=== PATIENT | male | born 1945 | race Caucasian/White ===

== ENCOUNTER → 2018-04-04 08:51 | Outpatient (CLI) | payer MEDICARE, OTHER, SELFPAY ==
[2018-04-04 11:23] LABS: Add Manual Diff / Slide Review NO; Basophils Percent Auto 0.3 % (0-2); Eosinophils Percent Auto 3.9 % (2-4); Hematocrit 41.8 % (41-53); Hemoglobin 14.7 g/dL (13.5-17.5); Lymphocytes Percent Auto 31.9 % (25-40); Mean Corpuscular HGB Conc 35.1 % (30-36); Mean Corpuscular Hemoglobin 34.8 PG (26-34); Mean Corpuscular Volume 99.1 fL (80-100); Monocytes Percent Auto 11.9 % (3-14); Neutrophils Absolute Auto 1900 /uL (3000-5900); Platelet Count 227 X10^3/uL (150-400); Red Blood Cell Count 4.22 X10^6/uL (4.5-5.9); Red Cell Distribution Width 13.1 % (11.6-14.8); White Blood Cell Count 3.6 X10^3/uL (4.5-11.0)
[2018-04-04 11:24] LABS: Alanine Aminotransferase 41 IU/L (21-72); Albumin 4.1 g/dL (3.5-5.0); Albumin Globulin Ratio 1.4 (1.0-2.8); Alkaline Phosphatase 51 U/L (38-126); Aspartate Aminotransferase 27 IU/L (17-59); BUN Creatinine Ratio 17.1 (6-22); Bilirubin Total 0.9 mg/dL (0.2-1.3); Blood Urea Nitrogen 12 mg/dL (9-20); Calcium 9.1 mg/dL (8.4-10.2); Carbon Dioxide 28 mmol/L (22-32); Chloride 101 mmol/L (98-107); Cholesterol 212 mg/dL (140-199); Estimated Glomerular Filt Rate > 60.0 mL/min (>60); Glucose 94 mg/dL (80-110); HDL Cholesterol 50 mg/dL (40-60); HEMOLYSIS < 15 (0-50); LDL Cholesterol Calculated 140 mg/dL (<100); Potassium 4.2 mmol/L (3.4-5.1); Sodium 141 mmol/L (137-145); Total Protein 7.1 g/dL (6.3-8.2); Triglycerides 108 mg/dL (35-150)
[2018-04-04 11:51] LABS: TSH w/ Reflex to FT4 0.96 uIU/mL (0.47-4.68)
== END ==
PROVIDERS: PCP Internal Medicine; Visit Provider Internal Medicine
DX: I10 Essential (primary) hypertension (principal); E78.00 Pure hypercholesterolemia, unspecified; E03.9 Hypothyroidism, unspecified
CPT/HCPCS: 36415; 80053; 80061; 84443; 85025

== ENCOUNTER → 2020-04-22 18:23 | Outpatient (ROUT) | payer MEDICARE, OTHER, SELFPAY ==
[2020-04-22 18:52] LABS: Add Manual Diff / Slide Review NO; Basophils Absolute Auto 0 /uL (0-100); Basophils Percent Auto 0.3 % (0-2); Eosinophils Absolute Auto 200 /uL (0-450); Eosinophils Percent Auto 5.4 % (2-4); Hematocrit 41.7 % (41-53); Hemoglobin 14.6 g/dL (13.5-17.5); Lymphocytes Absolute Auto 1200 /uL (1100-4500); Lymphocytes Percent Auto 38.5 % (25-40); Mean Corpuscular Hemoglobin 34.9 PG (26-34); Mean Corpuscular Volume 99.8 fL (80-100); Monocytes Absolute Auto 300 /uL (0-900); Monocytes Percent Auto 9.9 % (3-14); Neutrophils Absolute Auto 1500 /uL (1500-7000); Neutrophils Percent Auto 45.9 % (50-75); Platelet Count 209 X10^3/uL (150-400); Red Blood Cell Count 4.18 X10^6/uL (4.5-5.9); Red Cell Distribution Width 13.1 % (11.6-14.8); White Blood Cell Count 3.2 X10^3/uL (4.5-11.0)
[2020-04-22 18:57] LABS: Alanine Aminotransferase 39 IU/L (<50); Albumin 4.1 g/dL (3.5-5.0); Albumin Globulin Ratio 1.5 (1.0-2.8); Alkaline Phosphatase 45 U/L (38-126); Aspartate Aminotransferase 36 IU/L (17-59); Bilirubin Total 0.7 mg/dL (0.2-1.3); Blood Urea Nitrogen 17 mg/dL (9-20); Calcium 9.4 mg/dL (8.4-10.2); Carbon Dioxide 25 mmol/L (22-32); Chloride 104 mmol/L (98-107); Cholesterol 194 mg/dL (140-199); Estimated Glomerular Filt Rate > 60.0 mL/min (>60); Globulin 2.7 g/dL (1.7-4.1); Glucose 170 mg/dL (80-110); HDL Cholesterol 46 mg/dL (40-60); HEMOLYSIS < 15 (0-50); LDL Cholesterol Calculated 125 mg/dL (<100); Potassium 4.5 mmol/L (3.4-5.1); Sodium 136 mmol/L (137-145); Total Protein 6.8 g/dL (6.3-8.2); Triglycerides 114 mg/dL (35-150)
[2020-04-25 15:12] LABS: Hemoglobin A1C% w Est Avg Glu 5.9 % (4.0-6.0)
== END ==
PROVIDERS: Family Provider Internal Medicine; PCP Internal Medicine; Visit Provider Physician Assistant
DX: F32.9 Major depressive disorder, single episode, unspecified (principal); I10 Essential (primary) hypertension; E03.9 Hypothyroidism, unspecified
CPT/HCPCS: 80053; 80061; 83036; 84443; 85025

== ENCOUNTER → 2021-08-25 13:29 | Outpatient (CLI) | payer MEDICARE, OTHER, SELFPAY ==
[2021-08-27 11:12] LABS: COVID19 Sendout Positive (Not Detect)
== END ==
PROVIDERS: Family Provider Internal Medicine; PCP Internal Medicine; Visit Provider Nurse Practitioner
DX: U07.1 COVID-19 (principal); Z20.822 Contact with and (suspected) exposure to COVID-19
CPT/HCPCS: 87635

== ENCOUNTER → 2022-05-04 18:56 | Outpatient (CLI) | payer MEDICARE, OTHER, SELFPAY ==
--- NOTE | 2022-05-04 | DI.MRI.S_ITS ---
PROCEDURE: MR LUMBAR SPINE WO CON INDICATIONS: radiculopathy, lumbar region TECHNIQUE: Noncontrast sagittal T1 spin echo and T2 fast echo, sagittal STIR, and T2 fast spin echo through the lumbar spine. In cases with scoliosis, additional coronal T2 fast spin echo may be performed. COMPARISON: [facility], CR, XR LUMBAR SPINE WITH OBLIQUES PLUS FLEXION EXTENSION, 05/01/2022, 10:38. FINDINGS: Image quality: Excellent. Alignment and Curvature: Trace anterolisthesis L4 on L5. Bone Marrow: Marrow is of normal overall signal. No acute vertebral body compression fractures. Spinal Cord: Conus medullaris terminates at the L1 level. Visualized cord demonstrates normal signal and size. Paraspinous Soft Tissues: No paravertebral masses. T12-L1: No canal stenosis or foraminal stenosis. L1-L2: Minimal disc bulge. No canal stenosis or foraminal stenosis. L2-L3: Moderate disc height loss. Mild disc bulge. Facet and ligament hypertrophy. Mild canal stenosis. Right foraminal annulus tear plus disc bulge. Mild bilateral foraminal narrowing. L3-L4: Disc bulge. Facet and ligament hypertrophy. Mild canal stenosis. Mild bilateral foraminal stenosis. L4-L5: Disc bulge. Superimposed mild left paracentral disc protrusion. Moderate to severe central canal stenosis. Severe left lateral recess stenosis. Small left foraminal disc extrusion with moderate to severe left foraminal narrowing and impingement on the left L4 nerve root in the foramen. L5-S1: Disc bulge. Facet and ligament hypertrophy. A combination of facet hypertrophy and mild broad-based right foraminal disc protrusion results in moderate to severe right foraminal narrowing with right foraminal nerve root impingement. There is moderate left foraminal narrowing. IMPRESSION: 1. Diffuse degenerative change. 2. The most significant findings are at L4-L5. There is moderate to severe canal stenosis, severe left lateral recess stenosis, and a left foraminal disc extrusion contributing to left foraminal L4 nerve root impingement. 3. There is mild canal stenosis at L2-L3 and L3-L4. 4. There is moderate to severe right foraminal narrowing at L5-S1. Dictated by: Paul Dixon M.D. on 05/08/2022 at 8:33 Approved by: Paul Dixon M.D. on 05/08/2022 at 9:59
== END ==
PROVIDERS: Family Provider Internal Medicine; PCP Internal Medicine; Referring Provider Physical Medicine & Rehabilitation Pain Medicine; Visit Provider Physical Medicine & Rehabilitation Pain Medicine
DX: M47.26 Other spondylosis with radiculopathy, lumbar region; M47.27 Other spondylosis with radiculopathy, lumbosacral region; M48.061 Spinal stenosis, lumbar region without neurogenic claudication; M48.07 Spinal stenosis, lumbosacral region
CPT/HCPCS: 72148

== ENCOUNTER 2023-05-16 07:10 | Emergency (ER) | payer MEDICARE, SELFPAY ==
[2023-05-16 07:18] VITALS: BP 190/114; PULSE 95; RESP 20; TEMP 36.6; O2SAT 94; BMI 27.2
[2023-05-16 07:30] VITALS: PULSE 90; O2SAT 95
[2023-05-16 07:37] VITALS: BP 173/123; PULSE 90; O2SAT 94
--- NOTE | 2023-05-16 07:46 | ED_ITS ---
HPI - Neck Pain/Injury General Chief Complaint: Neck Pain/Injury Stated Complaint: neck pain Time Seen by Provider: 05/16/23 07:18 Source: patient Mode of arrival: Ambulatory Limitations: no limitations History of Present Illness HPI Narrative: Patient presents with about 3 days of neck pain. He was on a fishing trip 3-4 days ago. He remembers turning his neck sharply, no pain at the time. He developed neck pain after the trip. He has significant discomfort with rotation to the left or the right. He is no associated headache or visual changes. He is no numbness or weakness in the upper lower extremities. There was no obvious significant trauma to his neck. He is no prior history of neck problems. Related Data Home Medications Medication Instructions Recorded Confirmed citalopram 20 mg tablet (Celexa) 20 mg PO DAILY 03/18/18 08/13/22 levothyroxine 25 mcg capsule 25 mcg PO DAILY 03/18/18 08/13/22 Previous Rx's Medication Instructions Recorded methocarbamol 750 mg tablet 750 mg PO Q6H PRN muscle spasm #60 05/16/23 tabs tramadol 50 mg tablet 50 mg PO Q6H PRN pain #20 tabs 05/16/23 Allergies Allergy/AdvReac Type Severity Reaction Status Date / Time SULFA Allergy Mild Uncoded 08/13/22 15:27 Review of Systems Constitutional Constitutional: Denies chills, Denies fever(s) and Denies weakness Comments: No recent illness Eyes Eyes: Denies blurry vision and Denies change in vision ENT Ears, Nose, Mouth, and Throat: Denies vertigo, Denies dizziness and Reports neck pain Comments: No headache. Musculoskeletal Musculoskeletal: Denies back pain, Denies muscle cramps, Denies muscle weakness, Reports neck pain and Denies numbness Integumentary/Breasts Skin/Breast: Denies rash Neurologic Neurologic: Denies confusion, Denies vertigo, Denies dizziness, Denies numbness and Denies weakness Psychiatric Psychiatric: Denies confusion Patient History Medical History (Updated 05/16/23 @ 08:03 by Carlo Gomes MD) Hypothyroidism Social History Smoking Status: Former smoker Smoking Status: Former smoker alcohol intake frequency: holidays/special occasions only Substance Use Type: does not use Exam Initial Vital Signs Initial Vital Signs: Vital Signs Temperature 97.9 F 05/16/23 07:18 Pulse Rate 95 H 05/16/23 07:18 Respiratory Rate 20 05/16/23 07:18 Blood Pressure 190/114 H 05/16/23 07:18 Pulse Oximetry 94 05/16/23 07:18 Oxygen Delivery Method Room Air 05/16/23 07:18 Const General: cooperative, healthy appearing and other (Appears uncomfortable) Nutritional Appearance: average body habitus [facility] Head: normal to inspection, normocephalic and atraumatic Eyes General: Yes appearance normal, both eyes and all related structures Neck Other: Palpation of the C-spine reveals no abnormalities. No paraspinal tenderness. Significant discomfort in the proximal C-spine with rotation to the left or the right. Lesser discomfort with flexion of the neck. Back/Spine/Pelvis Other: No thoracic spine tenderness. Skin General: no rashes or lesions noted Neuro General: patient alert, patient awake and patient oriented x3 Other: Motor and sensory exam of the upper extremities is intact. Extrem General: normal to inspection and full ROM (In upper extremities.) Psych Appearance: grossly normal Course Orders Ordered: ED Orders 05/16/23 07:50 XR cervical spine 2V or 3V Stat Vital Signs Vital signs: Vital Signs - 8 hr 05/16/23 07:18 05/16/23 07:30 05/16/23 07:37 Temperature 97.9 F Pulse Rate 95 H 90 90 Respiratory Rate 20 Blood Pressure 190/114 H Pulse Oximetry 94 95 94 Oxygen Delivery Method Room Air Room Air 05/16/23 07:37 Temperature Pulse Rate Respiratory Rate Blood Pressure 173/123 H Pulse Oximetry Oxygen Delivery Method MDM - Neck Pain/Injury Imaging Data C-spine x-ray: Radiologist's Impression: ? No cervical spine fracture or dislocation.? 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 Discharge Plan Departure Activity Restrictions/Additional Instructions: Tylenol every 4 hours as needed for pain. Tramadol every 6 hours for added pain control. Robaxin every 6 hours for muscle spasm. I have given you a written order for physical therapy. You will have to contact a local physical therapist on arrange care yourself, my written order should suffice. Consider establishing care with a local primary care provider. Prescriptions: New tramadol 50 mg tablet 50 mg PO Q6H PRN (Reason: pain) Qty: 20 0RF methocarbamol 750 mg tablet 750 mg PO Q6H PRN (Reason: muscle spasm) Qty: 60 0RF No Action levothyroxine 25 mcg capsule 25 mcg PO DAILY citalopram [Celexa] 20 mg tablet 20 mg PO DAILY Referrals: Robb Connolly MD [Primary Care Provider] -
--- NOTE | 2023-05-16 07:50 | DI.RAD.S_ITS ---
PROCEDURE: XR CERVICAL SPINE 2V OR 3V INDICATIONS: Neck pain. No trauma. TECHNIQUE: 4 view(s) of the cervical spine were acquired. COMPARISON: None. FINDINGS: Bones: No fractures or dislocations to the T1 level. Straightening of normal cervical lordosis is seen. Loss of disc height and degenerative endplate changes are seen at C4-5 through C6-7 levels. The lateral masses of C1 appear intact on the odontoid view. No suspicious bony lesions. Soft tissues: No prevertebral soft tissue swelling. IMPRESSION: No cervical spine fracture or dislocation. 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 Dictated by: Willie De La Vega M.D. on 05/16/2023 at 8:37 Approved by: Willie De La Vega M.D. on 05/16/2023 at 8:37
--- NOTE | 2023-05-16 18:19 | ED.NECK ---
HPI - Neck Pain/Injury General Chief Complaint: Neck Pain/Injury Stated Complaint: neck pain Time Seen by Provider: 05/16/23 07:18 Mode of arrival: Ambulatory Limitations: no limitations Related Data Home Medications Medication Instructions Recorded Confirmed citalopram 20 mg tablet (Celexa) 20 mg PO DAILY 03/18/18 08/13/22 levothyroxine 25 mcg capsule 25 mcg PO DAILY 03/18/18 08/13/22 Previous Rx's Medication Instructions Recorded methocarbamol 750 mg tablet 750 mg PO Q6H PRN muscle spasm #60 05/16/23 tabs tramadol 50 mg tablet 50 mg PO Q6H PRN pain #20 tabs 05/16/23 Allergies Allergy/AdvReac Type Severity Reaction Status Date / Time SULFA Allergy Mild Uncoded 08/13/22 15:27 Review of Systems Constitutional Constitutional: Denies weakness ENT Ears, Nose, Mouth, and Throat: Denies vertigo and Denies dizziness Musculoskeletal Musculoskeletal: Denies numbness Neurologic Neurologic: Denies confusion, Denies vertigo, Denies dizziness, Denies numbness and Denies weakness Psychiatric Psychiatric: Denies confusion Patient History Medical History (Updated 05/16/23 @ 18:20 by Carlo Gomes MD) Hypothyroidism Social History Smoking Status: Former smoker Smoking Status: Former smoker alcohol intake frequency: holidays/special occasions only Substance Use Type: does not use Exam Initial Vital Signs Initial Vital Signs: Vital Signs Temperature 97.9 F 05/16/23 07:18 Pulse Rate 95 H 05/16/23 07:18 Respiratory Rate 20 05/16/23 07:18 Blood Pressure 190/114 H 05/16/23 07:18 Pulse Oximetry 94 05/16/23 07:18 Oxygen Delivery Method Room Air 05/16/23 07:18 Discharge Plan Departure Patient Disposition: Home Clinical Impression: Cervical osteoarthritis Activity Restrictions/Additional Instructions: Tylenol every 4 hours as needed for pain. Tramadol every 6 hours for added pain control. Robaxin every 6 hours for muscle spasm. I have given you a written order for physical therapy. You will have to contact a local physical therapist on arrange care yourself, my written order should suffice. Consider establishing care with a local primary care provider. Prescriptions: New tramadol 50 mg tablet 50 mg PO Q6H PRN (Reason: pain) Qty: 20 0RF methocarbamol 750 mg tablet 750 mg PO Q6H PRN (Reason: muscle spasm) Qty: 60 0RF No Action levothyroxine 25 mcg capsule 25 mcg PO DAILY citalopram [Celexa] 20 mg tablet 20 mg PO DAILY Referrals: Robb Connolly MD [Primary Care Provider] - Stand Alone Forms: Patient Portal/API
== END 2023-05-16 09:30 | disposition home or self-care (01) ==
PROVIDERS: Emergency Provider Emergency Medicine; Family Provider Internal Medicine; PCP Internal Medicine
DX: M47.812 Spondylosis without myelopathy or radiculopathy, cervical region (principal)
CPT/HCPCS: 72040; 99281; 99283

== ENCOUNTER 2024-04-11 13:59 | Emergency (ER) | payer MEDICARE, SELFPAY ==
--- NOTE | 2024-04-11 14:30 | DI.RAD.S_ITS ---
PROCEDURE: XR CHEST 1V INDICATIONS: SOB TECHNIQUE: One view of the chest was acquired. COMPARISON: None. FINDINGS: Surgical changes and devices: None. Lungs and pleura: Lungs are clear. No pleural effusions or pneumothorax. Mediastinum: Mediastinal contours appear normal. Heart size is normal. Bones and chest wall: No suspicious bony lesions. Overlying soft tissues appear unremarkable. IMPRESSION: No acute cardiopulmonary abnormality is seen. Dictated by: Star Rebollar M.D. on 04/11/2024 at 15:32 Approved by: Star Rebollar M.D. on 04/11/2024 at 15:32
--- NOTE | 2024-04-11 17:04 | ED.CHESTPAIN ---
HPI - Chest Pain <Amanda Valdez DO - Last Filed: 04/11/24 18:50> General Chief Complaint: Chest Pain Stated Complaint: SOB Time Seen by Provider: 04/11/24 16:27 Source: patient, RN notes reviewed and old records reviewed Mode of arrival: Family Vehicle Limitations: no limitations History of Present Illness HPI narrative: 78-year-old male on citalopram and fish oil, flaxseed oil red yeast rice who presents with complaint of chest tightness that is substernal without radiation, patient states been going on and off for the past week with exertion when he goes for walks. He describes it as acid reflux. States it has only been associated with exertion. Today after his walk was persistent and not resolving he came to be evaluated. States it has resolved at this time. He denies any shortness of breath except with exertion. Denies any chills or diaphoresis. No syncope. No new swelling in extremities. No nausea or vomiting. Patient states no GI or urinary symptoms otherwise. He states his only prescription medication is citalopram. He does not take anything for hypertension, states he does not tolerate statins but is on fish oil, flaxseed and red yeast rice. He does not take any aspirin or other anticoagulants daily. Denies any prior surgeries. No prior heart cardiac catheterization or stress test. No tobacco, has 1 scotch daily sometimes two. Denies any recreational drugs. His primary care was in [place]. Related Data Home Medications Medication Instructions Recorded Confirmed citalopram 20 mg tablet (Celexa) 20 mg PO DAILY 03/18/18 08/13/22 levothyroxine 25 mcg capsule 25 mcg PO DAILY 03/18/18 08/13/22 Previous Rx's Medication Instructions Recorded methocarbamol 750 mg tablet 750 mg PO Q6H PRN muscle spasm #60 05/16/23 tabs tramadol 50 mg tablet 50 mg PO Q6H PRN pain #20 tabs 05/16/23 Allergies Allergy/AdvReac Type Severity Reaction Status Date / Time SULFA Allergy Mild Uncoded 08/13/22 15:27 Review of Systems <DO Epi Monroy Last Filed: 04/11/24 18:50> Review of Systems ROS Unobtainable: All systems reviewed & are unremarkable except as noted in HPI and below Patient History <Amanda Valdez DO - Last Filed: 04/11/24 18:50> Medical History Hypothyroidism Social History Smoking Status: Former smoker Smoking Status: Former smoker alcohol intake frequency: holidays/special occasions only Substance Use Type: does not use Exam <Amanda Valdez DO - Last Filed: 04/11/24 18:50> Narrative Exam Narrative: GENERAL: Alert and oriented x three, mild distress. HEENT: Head normocephalic, atraumatic, EOMI, pupils reactive, face symmetric, moist mucous membranes NECK: Supple, full range of motion CARDIOVASCULAR: Regular rate and rhythm without murmurs, rubs or gallops. 2+ pulses bilateral lower extremities. RESPIRATORY: Breath sounds equal bilaterally, no wheezes rales or rhonchi. ABDOMEN: Soft, nontender. Normoactive bowel sounds all 4 quadrants. No guarding or rebound, rigidity, no mass : No CVA tenderness EXTREMITIES: Normal range of motion, no clubbing or edema. Neurovascularly intact NEUROLOGICAL: Cranial nerves II through XII grossly intact. Moving all extremities SKIN: Warm, dry, no petechiae, no rashes or lesions. Course <Amanda Valdez DO - Last Filed: 04/11/24 18:50> Orders Ordered: Discontinued Medications Aspirin (Aspirin 81 Mg Chew Tab) 324 mg PO NOW ONE Stop: 04/11/24 17:03 Last Admin: 04/11/24 17:13 Dose: 324 mg Documented By: FINN Heparin Sodium (Porcine) (Heparin 5,000 Unit/Ml Vial) 5,000 unit IV NOW ONE Stop: 04/11/24 17:03 Last Admin: 04/11/24 17:14 Dose: 5,000 unit Documented By: FINN Heparin Sodium/Dextrose (Heparin Drip) 25,000 unit in 500 mls @ 21.772 mls/hr IV CONT BURTON; Protocol Last Admin: 04/11/24 17:26 Dose: Not Given Documented By: RENA Heparin Sodium/Dextrose (Heparin Drip) 25,000 unit in 500 mls @ 21.772 mls/hr IV CONT BURTON; Protocol Heparin Sodium/Dextrose (Heparin Drip) 25,000 unit in 500 mls @ 21.772 mls/hr IV CONT BURTON; Protocol Last Admin: 04/11/24 17:37 Dose: Not Given Documented By: RENA Heparin Sodium/Dextrose (Heparin Drip) 25,000 unit in 500 mls @ 21.772 mls/hr IV CONT BURTON; Protocol Last Titration: 04/11/24 17:18 Dose: 11.02 units/kg/hr, 20 mls/hr Documented By: FINN Co-signed By: RENA Admin: 04/11/24 17:17 Dose: 12 units/kg/hr, 21.772 mls/hr Documented By: LW Co-signed By: OLINDA <Amanda Quintana MD - Last Filed: 04/12/24 03:38> Orders Ordered: Discontinued Medications Aspirin (Aspirin 81 Mg Chew Tab) 324 mg PO NOW ONE Stop: 04/11/24 17:03 Last Admin: 04/11/24 17:13 Dose: 324 mg Documented By: FINN Heparin Sodium (Porcine) (Heparin 5,000 Unit/Ml Vial) 5,000 unit IV NOW ONE Stop: 04/11/24 17:03 Last Admin: 04/11/24 17:14 Dose: 5,000 unit Documented By: FINN Heparin Sodium/Dextrose (Heparin Drip) 25,000 unit in 500 mls @ 21.772 mls/hr IV CONT BURTON; Protocol Last Admin: 04/11/24 17:26 Dose: Not Given Documented By: RENA Heparin Sodium/Dextrose (Heparin Drip) 25,000 unit in 500 mls @ 21.772 mls/hr IV CONT BURTON; Protocol Heparin Sodium/Dextrose (Heparin Drip) 25,000 unit in 500 mls @ 21.772 mls/hr IV CONT BURTON; Protocol Last Admin: 04/11/24 17:37 Dose: Not Given Documented By: RENA Heparin Sodium/Dextrose (Heparin Drip) 25,000 unit in 500 mls @ 21.772 mls/hr IV CONT BURTON; Protocol Last Titration: 04/11/24 17:18 Dose: 11.02 units/kg/hr, 20 mls/hr Documented By: FINN Co-signed By: RENA Admin: 04/11/24 17:17 Dose: 12 units/kg/hr, 21.772 mls/hr Documented By: LW Co-signed By: OLINDA MDM - Chest Pain <Amanda Valdez DO - Last Filed: 04/11/24 18:50> Lab Data 04/11/24 14:40 04/11/24 14:40 Labs: Lab Results 04/11/24 04/11/24 Range/Units 14:40 16:07 WBC 4.3 L (4.5-11.0) X10^3/uL RBC 3.87 L (4.5-5.9) X10^6/uL Hgb 13.4 L (13.5-17.5) g/dL Hct 38.9 L (41-53) % MCV 100.6 H (80-100) fL MCH 34.6 H (26-34) PG MCHC 34.4 (30-36) % RDW 13.2 (11.6-14.8) % Plt Count 215 (150-400) X10^3/uL Neut % (Auto) 47.8 L (50-75) % Lymph % (Auto) 36.9 (25-40) % Gallia % (Auto) 12.3 (3-14) % Eos % (Auto) 2.8 (2-4) % Baso % (Auto) 0.2 (0-2) % Neut # (Auto) 2100 (1304-2701) /uL Lymph # (Auto) 1600 (5823-1018) /uL Gallia # (Auto) 500 (0-900) /uL Eos # (Auto) 100 (0-450) /uL Baso # (Auto) 0 (0-100) /uL PT 11.7 (9.4-12.5) SECONDS INR 1.0 (0.9-1.3) APTT 33 (25.1-36.5) SECONDS Sodium 135 L (137-145) mmol/L Potassium 4.2 (3.4-5.1) mmol/L Chloride 106 (98-107) mmol/L Carbon Dioxide 25 (22-32) mmol/L BUN 14 (9-20) mg/dL Creatinine 0.89 (0.66-1.25) mg/dL Estimated GFR > 60 (>60) mL/min BUN/Creatinine Ratio 15.7 (6-22) Glucose 103 (80-110) mg/dL Lactate 0.7 (0.7-2.1) mmol/L Calcium 8.9 (8.4-10.2) mg/dL Total Bilirubin 0.7 (0.2-1.3) mg/dL AST 32 (17-59) IU/L ALT 33 (<50) IU/L Alkaline Phosphatase 64 (38-126) U/L Total Creatine Kinase 118 (55-170) U/L Troponin I 0.194 H* 0.220 H* (0.01-0.034) ng/mL NT-Pro-B Natriuret Pep 94 (<450) pg/mL Total Protein 6.5 (6.3-8.2) g/dL Albumin 3.9 (3.5-5.0) g/dL Globulin 2.6 (1.7-4.1) g/dL Albumin/Globulin Ratio 1.5 (1.0-2.8) Chlamy pneumoniae PCR Not detected (Not Detect) Adenovirus (PCR) Not detected (Not Detect) B.parapertussis DNA PCR Not detected (Not Detecte) Coronavirus OC43 (PCR) Not detected (Not Detect) Coronavirus HKU1 (PCR) Not detected (Not Detect) Coronavirus 229E (PCR) Not detected (Not Detect) SARS-CoV-2 (PCR) Not detected (Not Detecte) Coronavirus NL63 (PCR) Not detected (Not Detect) Human Metapneumovir PCR Not detected (Not Detect) Influenza Type A (PCR) Not detected (Not Detect) Influenza Type B (PCR) Not detected (Not Detect) M. pneumoniae (PCR) Not detected (Not Detect) Parainfluenza 1 (PCR) Not detected (Not Detect) Parainfluenza 2 (PCR) Not detected (Not Detect) Parainfluenza 3 (PCR) Not detected (Not Detect) Parainfluenza 4 (PCR) Not detected (Not Detect) RSV (PCR) Not detected (Not Detect) Entero/Rhino (PCR) Not detected (Not Detect) Imaging Data Chest x-ray: Radiologist's Impression: No acute change. ECG Data Attestation: I personally reviewed and interpreted this ECG as follows: Interpretation: Sinus rhythm rate of 64 TX 160 QRS 86 QTC 445. T-wave inverted in lead 3, no other clear ST depression. No elevation appreciated. Does have some nonspecific change. EMR has been unavailable for comparison EKGs. EKG 2. Shows sinus bradycardia rate of 59 TX 204 QRS 88 QTC 437. T-waves appear slightly more slanted and V2 3 but no new elevation, no new depression appreciated. [facility] Narrative Medical decision making narrative: 78-year-old male presents with complaint of substernal chest pain and pressure with exertion for increasing over the past 2 weeks had more persistent symptoms today. Patient has not had any acute ST elevation or depression does have little bit of increasingly slanted T-waves on V2 3. Patient's troponin is positive. On repeat was trending upwards. Patient had respiratory panel which was negative. CBC shows a white count of 4.3 hemoglobin of 13.4, platelets of 215. INR is 1.02 with a PTT of 33, lactate 0.7 CMP shows creatinine 0.89, sodium 135 potassium of 4.2 chloride of 106 CO2 of 25, BUN 14, BNP is 93, troponin is positive at 0.194 initially and trended upwards to 0.22. LFTs are in normal range. Chest x-ray is negative. Patient diagnosed with NSTEMI received aspirin, started on heparin no active chest pain currently. Spoke with Cardiology, at [place], happy to see patient. Plan for cath in am Spoke with Hospitalist, Dr. Schmidt who accepts for transfer. Likely transfer this evening. <Amanda Quintana MD - Last Filed: 04/12/24 03:38> Lab Data Labs: Lab Results 04/11/24 04/11/24 Range/Units 14:40 16:07 WBC 4.3 L (4.5-11.0) X10^3/uL RBC 3.87 L (4.5-5.9) X10^6/uL Hgb 13.4 L (13.5-17.5) g/dL Hct 38.9 L (41-53) % MCV 100.6 H (80-100) fL MCH 34.6 H (26-34) PG MCHC 34.4 (30-36) % RDW 13.2 (11.6-14.8) % Plt Count 215 (150-400) X10^3/uL Neut % (Auto) 47.8 L (50-75) % Lymph % (Auto) 36.9 (25-40) % Gallia % (Auto) 12.3 (3-14) % Eos % (Auto) 2.8 (2-4) % Baso % (Auto) 0.2 (0-2) % Neut # (Auto) 2100 (0649-1167) /uL Lymph # (Auto) 1600 (3556-7496) /uL Gallia # (Auto) 500 (0-900) /uL Eos # (Auto) 100 (0-450) /uL Baso # (Auto) 0 (0-100) /uL PT 11.7 (9.4-12.5) SECONDS INR 1.0 (0.9-1.3) APTT 33 (25.1-36.5) SECONDS Sodium 135 L (137-145) mmol/L Potassium 4.2 (3.4-5.1) mmol/L Chloride 106 (98-107) mmol/L Carbon Dioxide 25 (22-32) mmol/L BUN 14 (9-20) mg/dL Creatinine 0.89 (0.66-1.25) mg/dL Estimated GFR > 60 (>60) mL/min BUN/Creatinine Ratio 15.7 (6-22) Glucose 103 (80-110) mg/dL Lactate 0.7 (0.7-2.1) mmol/L Calcium 8.9 (8.4-10.2) mg/dL Total Bilirubin 0.7 (0.2-1.3) mg/dL AST 32 (17-59) IU/L ALT 33 (<50) IU/L Alkaline Phosphatase 64 (38-126) U/L Total Creatine Kinase 118 (55-170) U/L Troponin I 0.194 H* 0.220 H* (0.01-0.034) ng/mL NT-Pro-B Natriuret Pep 94 (<450) pg/mL Total Protein 6.5 (6.3-8.2) g/dL Albumin 3.9 (3.5-5.0) g/dL Globulin 2.6 (1.7-4.1) g/dL Albumin/Globulin Ratio 1.5 (1.0-2.8) Chlamy pneumoniae PCR Not detected (Not Detect) Adenovirus (PCR) Not detected (Not Detect) B.parapertussis DNA PCR Not detected (Not Detecte) Coronavirus OC43 (PCR) Not detected (Not Detect) Coronavirus HKU1 (PCR) Not detected (Not Detect) Coronavirus 229E (PCR) Not detected (Not Detect) SARS-CoV-2 (PCR) Not detected (Not Detecte) Coronavirus NL63 (PCR) Not detected (Not Detect) Human Metapneumovir PCR Not detected (Not Detect) Influenza Type A (PCR) Not detected (Not Detect) Influenza Type B (PCR) Not detected (Not Detect) M. pneumoniae (PCR) Not detected (Not Detect) Parainfluenza 1 (PCR) Not detected (Not Detect) Parainfluenza 2 (PCR) Not detected (Not Detect) Parainfluenza 3 (PCR) Not detected (Not Detect) Parainfluenza 4 (PCR) Not detected (Not Detect) RSV (PCR) Not detected (Not Detect) Entero/Rhino (PCR) Not detected (Not Detect) MDM Narrative Medical decision making narrative: 78-year-old male presents with complaint of substernal chest pain and pressure with exertion for increasing over the past 2 weeks had more persistent symptoms today. Patient has not had any acute ST elevation or depression does have little bit of increasingly slanted T-waves on V2 3. Patient's troponin is positive. On repeat was trending upwards. Patient had respiratory panel which was negative. CBC shows a white count of 4.3 hemoglobin of 13.4, platelets of 215. INR is 1.02 with a PTT of 33, lactate 0.7 CMP shows creatinine 0.89, sodium 135 potassium of 4.2 chloride of 106 CO2 of 25, BUN 14, BNP is 93, troponin is positive at 0.194 initially and trended upwards to 0.22. LFTs are in normal range. Chest x-ray is negative. Patient diagnosed with NSTEMI received aspirin, started on heparin no active chest pain currently. Spoke with Cardiology, at [place], happy to see patient. Plan for cath in am Spoke with Hospitalist, Dr. Schmidt who accepts for transfer. Likely transfer this evening. Patient transferred via ALS ground transport in hemodynamically stable condition. Critical Care Time <Amanda Valdez, - Last Filed: 04/11/24 18:50> Critical Care Time Critical Care Time: Yes Total Critical Care Time: 35 Attestation: The high probability of a clinically significant, sudden or life threatening deterioration of the cardiac system(s) required my full and direct attention, intervention and personal management. The aggregate critical care time was [--] minutes. This time is in addition to time spent performing reported procedures but includes the following: [x] Data Review and interpretation [x] Patient assessment and monitoring of vital signs [x] Documentation [x] Medication orders and management Discharge Plan Departure [facility] Clinical Impression: Non-STEMI (non-ST elevated myocardial infarction) Prescriptions: No Action levothyroxine 25 mcg capsule 25 mcg PO DAILY citalopram [Celexa] 20 mg tablet 20 mg PO DAILY tramadol 50 mg tablet 50 mg PO Q6H PRN (Reason: pain) Qty: 20 0RF methocarbamol 750 mg tablet 750 mg PO Q6H PRN (Reason: muscle spasm) Qty: 60 0RF Referrals: Robb Connolly MD [Primary Care Provider] -
[2024-04-11] MEDS: ASPIRIN 81 MG CHEW TAB 324 MG PO (17:13)
[2024-04-11] MEDS: HEPARIN 5,000 UNIT/ML VIAL 5000 UNIT IV (17:14)
[2024-04-11] MEDS: HEPARIN DRIP 25,000 UNIT/500 ML IV.SOLN 21.772 UNIT IV (17:17)
[2024-04-11 19:33] LABS: Basophils Absolute Auto 0 /uL (0-100); Basophils Percent Auto 0.2 % (0-2); Eosinophils Absolute Auto 100 /uL (0-450); Eosinophils Percent Auto 2.8 % (2-4); Hematocrit 38.9 % (41-53); Hemoglobin 13.4 g/dL (13.5-17.5); Lymphocytes Absolute Auto 1600 /uL (1100-4500); Lymphocytes Percent Auto 36.9 % (25-40); Mean Corpuscular HGB Conc 34.4 % (30-36); Mean Corpuscular Hemoglobin 34.6 PG (26-34); Mean Corpuscular Volume 100.6 fL (80-100); Monocytes Absolute Auto 500 /uL (0-900); Monocytes Percent Auto 12.3 % (3-14); Neutrophils Absolute Auto 2100 /uL (1500-7000); Neutrophils Percent Auto 47.8 % (50-75); Platelet Count 215 X10^3/uL (150-400); Red Blood Cell Count 3.87 X10^6/uL (4.5-5.9); Red Cell Distribution Width 13.2 % (11.6-14.8); White Blood Cell Count 4.3 X10^3/uL (4.5-11.0)
[2024-04-11 19:34] LABS: PTT Partial Thromboplastin Tim 33 SECONDS (25.1-36.5); Prothrombin Time 11.7 SECONDS (9.4-12.5)
[2024-04-11 19:35] LABS: Alanine Aminotransferase 33 IU/L (<50); Albumin 3.9 g/dL (3.5-5.0); Albumin Globulin Ratio 1.5 (1.0-2.8); Alkaline Phosphatase 64 U/L (38-126); Aspartate Aminotransferase 32 IU/L (17-59); BUN Creatinine Ratio 15.7 (6-22); Bilirubin Total 0.7 mg/dL (0.2-1.3); Blood Urea Nitrogen 14 mg/dL (9-20); Calcium 8.9 mg/dL (8.4-10.2); Carbon Dioxide 25 mmol/L (22-32); Chloride 106 mmol/L (98-107); Creatine Kinase 118 U/L (55-170); Estimated Glomerular Filt Rate > 60 mL/min (>60); Globulin 2.6 g/dL (1.7-4.1); Glucose 103 mg/dL (80-110); HEMOLYSIS < 15 (0-50); Lactate (Lactic Acid) 0.7 mmol/L (0.7-2.1); NT-proBNP (BNP-Adult 18+) 94 pg/mL (<450); Potassium 4.2 mmol/L (3.4-5.1); Sodium 135 mmol/L (137-145); Total Protein 6.5 g/dL (6.3-8.2)
[2024-04-11 19:36] LABS: Adenovirus Not Detected (Not Detect); Coronavirus 229E Not Detected (Not Detect); Coronavirus HKU1 Not Detected (Not Detect); SARS- CoV-2 Not Detected (Not Detecte)
[2024-04-11 19:37] LABS: B. parapertussis Not Detected (Not Detecte); Bordetella pertussis Not Detected (Not Detect); Chlamydophila pneumoniae Not Detected (Not Detect); Coronavirus NL 63 Not Detected (Not Detect); Coronavirus OC43 Not Detected (Not Detect); Human Metapneumovirus Not Detected (Not Detect); Human Rhinovirus/Enterovirus Not Detected (Not Detect); Influenza A Not Detected (Not Detect); Influenza B Not Detected (Not Detect); Mycoplasma pneumoniae Not Detected (Not Detect); Parainfluenza Virus 1 Not Detected (Not Detect); Parainfluenza Virus 2 Not Detected (Not Detect); Parainfluenza Virus 3 Not Detected (Not Detect); Parainfluenza Virus 4 Not Detected (Not Detect); Respiratory Syncytial Virus Not Detected (Not Detect)
[2024-04-11 21:01] LABS: Troponin I 0.194 ng/mL (0.01-0.034)
[2024-04-12 10:41] LABS: Add Manual Diff / Slide Review SLIDE REVIEW; Macrocytosis 1+
== END 2024-04-11 19:15 | disposition short-term general hospital (02) ==
PROVIDERS: Emergency Provider Emergency Medicine; Family Provider Internal Medicine; PCP Internal Medicine
DX: I21.4 Non-ST elevation (NSTEMI) myocardial infarction (principal); Z87.891 Personal history of nicotine dependence
CPT/HCPCS: 36415; 71045; 80053; 82550; 83605; 83880; 84484; 85025; 85610; 85730; 87633; 93005; 93010; 96374; 99284; 99291; J1644

== ENCOUNTER 2024-06-07 17:19 | Emergency (ER) | payer MEDICARE, SELFPAY ==
[2024-06-07 17:24] VITALS: BP 109/60; PULSE 81; RESP 18; TEMP 36.7; O2SAT 98; BMI 25.8
--- NOTE | 2024-06-07 17:30 | DI.RAD.S_ITS ---
PROCEDURE: XR FINGER LT MIN 2V INDICATIONS: laceration with filet knife TECHNIQUE: AP hand, 2 views of the 2nd finger(s) acquired. COMPARISON: None. FINDINGS: Bones: No fractures or dislocations. Osteoarthritic changes throughout left hand are seen. No suspicious bony lesions. Soft tissues: No suspicious soft tissue calcifications. No radiopaque foreign bodies. IMPRESSION: 1. Soft tissue swelling around 2nd digit. No acute fracture or dislocation. No radiopaque foreign bodies. 2. Left hand and wrist joint osteoarthritis. Dictated by: Willie De La Vega M.D. on 06/07/2024 at 17:51 Approved by: Willie De La Vega M.D. on 06/07/2024 at 17:53
--- NOTE | 2024-06-07 18:18 | ED.SKABFB ---
HPI - Skin/Abscess/Foreign Bdy General Chief complaint: Extremity Injury, Upper Stated complaint: lt middle finger lac Time Seen by Provider: 06/07/24 18:04 Source: patient Mode of arrival: Ambulatory Limitations: no limitations History of Present Illness HPI narrative: 78-year-old male presents requesting sutures and a tetanus update. Earlier in the afternoon he sliced his finger with a knife while making a sandwich. Denies other complaints Related Data Home Medications Medication Instructions Recorded Confirmed citalopram 20 mg tablet (Celexa) 20 mg PO DAILY 03/18/18 08/13/22 levothyroxine 25 mcg capsule 25 mcg PO DAILY 03/18/18 08/13/22 Previous Rx's Medication Instructions Recorded methocarbamol 750 mg tablet 750 mg PO Q6H PRN muscle spasm #60 05/16/23 tabs tramadol 50 mg tablet 50 mg PO Q6H PRN pain #20 tabs 05/16/23 Allergies Allergy/AdvReac Type Severity Reaction Status Date / Time SULFA Allergy Mild Uncoded 06/07/24 17:30 Patient History Medical History Hypothyroidism Social History Smoking Status: Former smoker Smoking Status: Former smoker alcohol intake frequency: 0-2 drinks per day Substance Use Type: does not use Exam Initial Vital Signs Initial Vital Signs: Vital Signs Temperature 98.1 F 06/07/24 17:24 Pulse Rate 81 06/07/24 17:24 Respiratory Rate 18 06/07/24 17:24 Blood Pressure 109/60 06/07/24 17:24 Pulse Oximetry 98 06/07/24 17:24 Oxygen Delivery Method Room Air 06/07/24 17:24 Const: Awake, alert, no acute distress, nontoxic appearing MSK: 2 cm oblique laceration left middle finger, full range of motion, normal capillary refill Skin: Warm, Dry, 2 cm oblique laceration Neuro: AO x3, CN II-XII grossly intact, moves all extremities Procedures Laceration Repair Laceration 1: Site: hand Side (If applicable): left Size (cm): 2 Description: linear Depth: simple, single layer Local Anesthetic: lidocaine 1% Amount of anesthesia used (mL): 2 Pre-repair: wound explored, irrigated extensively and deep structures intact Skin layer closed with: nylon Skin layer suture size: 5-0 Number of sutures: 7 Technique: simple, interrupted Course Orders Ordered: ED Orders 06/07/24 17:30 XR finger LT min 2V Stat Discontinued Medications Diphtheria/Tetanus/Acell Pertussis (Tet,Diph,Pertuss(Acell),Vac/Pf 0.5 Ml Syringe) 0.5 ml IM .ONCE ONE Stop: 06/07/24 19:32 Last Admin: 06/07/24 19:50 Dose: 0.5 ml Documented By: JENNY Lidocaine HCl (Lidocaine 1% 20 Ml) 20 ml INJ INTRA-OP ONE Stop: 06/07/24 19:09 Last Admin: 06/07/24 19:24 Dose: 20 ml Documented By: JENNY Vital Signs Vital signs: Vital Signs - 8 hr 06/07/24 17:24 06/07/24 19:58 Temperature 98.1 F 97.3 F L Pulse Rate 81 74 Respiratory Rate 18 16 Blood Pressure 109/60 134/68 Pulse Oximetry 98 98 Oxygen Delivery Method Room Air Room Air MDM - Skin/Abscess/Foreign Bdy Differential Diagnosis Differential diagnosis: Likely abscess of skin or subcutaneous tissue, eczema and insect bites MDM Narrative Medical decision making narrative: Finger laceration. Neurologically and vascularly intact, no evidence of tendon injury. Tetanus updated. Wound repaired per procedure note. Discharge Plan Departure Patient Disposition: Home Clinical Impression: Finger laceration Instructions: DI for Laceration Repair -- Finger Activity Restrictions/Additional Instructions: I put 7 sutures in your finger. Keep them clean and dry. You may shower, but if you get your sutures wet then I recommend padding them dry gently. If you notice redness, drainage, abnormal swelling please return for repeat evaluation. Sutures should be removed in 5-7 days. This can be done at primary care, urgent care, or in the emergency department. Ice can be applied for swelling. Prescriptions: No Action levothyroxine 25 mcg capsule 25 mcg PO DAILY citalopram [Celexa] 20 mg tablet 20 mg PO DAILY tramadol 50 mg tablet 50 mg PO Q6H PRN (Reason: pain) Qty: 20 0RF methocarbamol 750 mg tablet 750 mg PO Q6H PRN (Reason: muscle spasm) Qty: 60 0RF Referrals: Robb Connolly MD [Primary Care Provider] - Stand Alone Forms: Patient Portal/API
[2024-06-07] MEDS: LIDOCAINE 1% 20 ML INJ (19:24)
[2024-06-07] MEDS: TET,DIPH,PERTUSS(ACELL),VAC/PF 0.5 ML SYRINGE IM (19:50)
--- NOTE | 2024-06-07 19:55 | PC.NURSE ---
DCD applied to wound & secured with tube gauze.
[2024-06-07 19:58] VITALS: BP 134/68; PULSE 74; RESP 16; TEMP 36.3; O2SAT 98
== END 2024-06-07 19:59 | disposition home or self-care (01) ==
PROVIDERS: Emergency Provider Emergency Medicine; Family Provider Internal Medicine; PCP Internal Medicine
DX: S61.213A Laceration without foreign body of left middle finger without damage to nail, initial encounter (principal); W26.0XXA Contact with knife, initial encounter; Z23 Encounter for immunization
CPT/HCPCS: 12001; 73140; 90471; 99283; 99284; 90715